=== PATIENT | male | born 1995 | race Caucasian/White ===

== ENCOUNTER 2025-03-10 01:48 | Emergency (ER) | payer BC ==
[~2025-03-10] VITALS: Ht 188 cm; Wt 115.7 kg
[2025-03-10] MEDS ORDERED: ALBU18HF2 INH (03:02)
[2025-03-10] MEDS ORDERED: PRED50TA PO (03:02)
[2025-03-10] MEDS ORDERED: ACETAMINOPHEN ES 500 MG TABLET ONE (03:12)
[2025-03-10] MEDS: ACETAMINOPHEN ES 500 MG TABLET PO ONE (03:12)
[2025-03-10] MEDS: ALBUTEROL FS 2.5 MG/0.5 ML VIAL.NEB NEB ONE (03:16)
[2025-03-10 03:18] VITALS: O2SAT 95
[2025-03-10] MEDS ORDERED: ALBUTEROL FS 2.5 MG/0.5 ML VIAL.NEB ONE (03:19)
[2025-03-10 03:33] VITALS: O2SAT 98
[2025-03-10 04:05] VITALS: BP 122/70; TEMP 99.3; O2SAT 98
== END 2025-03-10 04:05 | disposition home or self-care (01) ==
LOC: ER 01:51
DX: J45.901 Unspecified asthma with (acute) exacerbation (principal); B34.9 Viral infection, unspecified; Z79.52 Long term (current) use of systemic steroids; Z20.822 Contact with and (suspected) exposure to COVID-19
CPT/HCPCS: 99285; 71045; 87426; 87804 ×2; 94640; J7512